=== PATIENT | male | born 1980 | race Caucasian/White ===

== ENCOUNTER 2018-10-30 11:51 | Emergency (ER) | payer OTHER ==
[2018-10-30 12:01] VITALS: BP 115/77; PULSE 103; TEMP 99.4; BMI 28.7
[2018-10-30] MEDS ORDERED: LACTATED RINGERS SOLUTION 1000 ML INFUS.BAG IV ONE (12:24)
[2018-10-30] MEDS ORDERED: ACETAMINOPHEN 1000 MG/100 ML VIAL (NON FORMULARY) IVPB ONE (12:25)
--- NOTE | 2018-10-30 12:26 | PDOC ---
History of Present Illness - General Chief Complaint: Diarrhea Stated Complaint: VOMITING / DIARRHEA Time Seen by Provider: 10/30/18 12:17 - History of Present Illness Initial Comments: 10/30/18 12:25 38-year-old male without comorbidities presents for evaluation of diarrhea and headache 5 days. He complains of night sweats and chills no bloody diarrhea. No recent antibiotics. Past History - Past Medical History Allergies/Adverse Reactions: Allergies Allergy/AdvReac Type Severity Reaction Status Date / Time No Known Allergies Allergy Verified 10/30/18 12:01 Home Medications: Ambulatory Orders NK [No Known Home Medication] 10/30/18 COPD: No - Immunization History Immunization Up to Date: Yes - Suicide/Smoking/Psychosocial Hx Smoking History: Never smoked Hx Alcohol Use: No Drug/Substance Use Hx: No Substance Use Type: None Review of Systems - Review of Systems Constitutional: Yes: Chills, Fever, Malaise, Night Sweats ABD/GI: Yes: Diarrhea. No: Blood Streaked Bowels, Nausea, Rectal Bleeding, Vomiting, Tarry Stools Neurological: Yes: Headache *Physical Exam - Vital Signs Last Vital Signs Temp Pulse Resp BP Pulse Ox 99.4 F 103 H 16 115/77 98 10/30/18 11:58 10/30/18 11:58 10/30/18 11:58 10/30/18 11:58 10/30/18 11:58 - Physical Exam Comments: 10/30/18 12:26 HEAD: NC/AT EYES: Conjuntiva clear Ears: Canals and TM's normal NOSE: No d/c THROAT: Moist mucous membrances, oral pharanx clear, uvula midline NECK: Supple without adenopathy CARDIAC: S1 S2 LUNGS: CTA Full and Equal breath sounds ABDOMEN: Soft NT ND MS: Full ROM in all joints without edema NEUROLOGIC: No gross sensory or motor deficits, NVID SKIN: Normal color and temperature no lesions or rashes ED Treatment Course - LABORATORY CBC & Chemistry Diagram: 10/30/18 12:30 10/30/18 12:30 Medical Decision Making - Medical Decision Making 10/30/18 14:07 No significantly abnormal lab findings. Patient feels better after a bag of lactated Ringer's and some affirmative. Most likely a viral gastroenteritis I will have him follow-up with his primary care physician. *DC/Admit/Observation/Transfer Diagnosis at time of Disposition: Viral gastroenteritis - Discharge Dispostion Disposition: HOME Condition at time of disposition: Stable Decision to Admit order: No - Referrals Referrals: Emily Goel MD [Primary Care Provider] - - Patient Instructions Printed Discharge Instructions: DI for Viral Gastroenteritis -- Adult Additional Instructions: He may drink Pedialyte as tolerated for oral hydration. Return to the emergency room for worsening symptoms. Tylenol and Motrin as directed for fever follow-up with your primary care physician in one to 2 days for further evaluation and treatment options. - Post Discharge Activity
[2018-10-30] MEDS ORDERED: ACETAMINOPHEN INJECTION 100 ML IVPB ONE (12:44)
[2018-10-30 13:09] LABS: BASO % 0.3 % (0-2.0); EOS % 1.2 % (0-4.5); HEMATOCRIT 41.4 % (35.4-49); HEMOGLOBIN 13.8 GM/dL (11.7-16.9); LYMPH % 33.9 % (8-40); MCH 25.4 pg (25.7-33.7); MCHC 33.2 g/dl (32.0-35.9); MEAN CELL VOLUME 76.5 fl (80-96); MEAN PLT VOLUME 8.5 fl (7.5-11.1); MONO % 15.6 % (3.8-10.2); PLATELET COUNT 191 K/MM3 (134-434); RBC 5.42 M/mm3 (4.00-5.60)
[2018-10-30 13:36] LABS: ALBUMIN 3.7 g/dl (3.4-5.0); ALK PHOS 56 U/L (45-117); ANION GAP 6 MMOL/L (8-16); BILIRUBIN,TOTAL 0.3 mg/dL (0.2-1); BLOOD UREA NITROGEN 17 mg/dL (7-18); CALCIUM 8.6 mg/dL (8.5-10.1); CHLORIDE 107 mmol/L (98-107); CO2 27 mmol/L (21-32); GLUCOSE,RANDOM 92 mg/dL (74-106); LIPASE 103 U/L (73-393); POTASSIUM 4.2 mmol/L (3.5-5.1); SGOT/AST 20 U/L (15-37); SGPT/ALT 27 U/L (13-61); SODIUM 140 mmol/L (136-145); TOT PROT 6.8 g/dl (6.4-8.2)
== END 2018-10-30 14:20 | disposition home or self-care (01) ==
LOC: JERFT 11:51
PROC: 3E033NZ Introduction of Analgesics, Hypnotics, Sedatives into Peripheral Vein, Percutaneous Approach (ICD-10-PCS; principal; 2018-10-30)
DX: A08.4 Viral intestinal infection, unspecified (principal); B97.89 Other viral agents as the cause of diseases classified elsewhere
CPT/HCPCS: 36415; 80053; 83690; 85025; 96374; 99281-25; J0131